=== PATIENT | female | born 1980 | race Caucasian/White ===

== ENCOUNTER 2016-09-17 20:47 | Emergency (ER) | payer OTHER ==
--- NOTE | ~2016-09-17 | CR281 ---
[facility]. [facility] A Service of [facility] & [facility] RADIOLOGY TEXT RESULTS PATIENT: CHAIM LOO LOCATION: SED : [birth year] UNIT #: [id number] AGE: [address]: Bernice Wilson SEX: F ORDER DR: [id number] [address] [address] [id number] E MR#: [id number] Acc #: [id number] NAME: CHAIM LOO : 1980 SEX: F STUDY DATE/TIME: 09/17/2016 20:54 UNIT: SED ROOM: STUDY DESCRIPTION: CR Wrist Min 3 View Lt Attending Physician: Bernice Wilson Pa-C Ordering Physician: Bernice Wilson Pa-C Primary Care Physician: No Primary Care Physician MEDICAL IMAGING REPORT This report is preliminary unless electronic signature is present. EXAM Left wrist series. DATE OF EXAM 09/17/2016 INDICATION Left wrist pain after an injury last night. PROCEDURE 3 views of the left wrist. COMPARISON None. FINDINGS Impacted and dorsally angulated fracture of the distal radius. No dislocation. Dictated by... Richard Fraser M.D. THIS IS AN ELECTRONICALLY VERIFIED REPORT Richard Fraser M.D. at 09/19/2016 7:00 AM ROYAL/malu TD: 09/17/2016 23:42 JOB #: [id number] MEDICAL IMAGING REPORT
[~2016-09-17 20:47] MED LIST: ALBUTEROL HFA INH; ALBUTEROL17 GM INH; ALPRAZOLAM PO; APAP325 MG PO; AUGMENTIN875 M1 PO; BACTRIM DS TABL1 TA2 PO; BACTRIM DS TABL1 TAB; BENZONATATE PO; BP MED; COUGHTAB200 MG PO; DICYCLOMINE HCL20 MG PO; GLUCOPHAGE XR500 MG; HCTZ; HYDROCHLOROTHIA25 MG; KEFLEX; METFORMIN; METFORMIN PO; PAXIL PO; PHENERGAN PO; PREDNISONE PO; PRILOSEC40 MG; PROZAC PO; REMERON30 MG PO; TEMAZEPAM PO; ULTRAM PO; VIBRAMYCIN100 M1 PO; VICODIN 5/1 TAB 5/50 PO; VICODIN 5/500 T1 TAB; VICODIN 5/500 T1 TAB PO; VOLTAREN75 MG PO; XANAX2 MG PO; ZITHROMAX1 G/PKT PO; ZOFRAN ODT4 MG PO
[2016-10-07] MEDS ORDERED: LORTAB 7.5-3251 EACH PO (13:22)
[2016-10-07] MEDS ORDERED: ESSURE (13:52)
== END 2016-09-17 22:48 | disposition home or self-care (01) ==
LOC: SED 20:47
DX: S52.502A Unspecified fracture of the lower end of left radius, initial encounter for closed fracture (principal); I10 Essential (primary) hypertension; E11.9 Type 2 diabetes mellitus without complications; F41.9 Anxiety disorder, unspecified; F32.9 Major depressive disorder, single episode, unspecified; F17.210 Nicotine dependence, cigarettes, uncomplicated; Z90.49 Acquired absence of other specified parts of digestive tract; Z79.899 Other long term (current) drug therapy; W01.0XXA Fall on same level from slipping, tripping and stumbling without subsequent striking against object, initial encounter; Y92.69 Other specified industrial and construction area as the place of occurrence of the external cause; Y99.0 Civilian activity done for income or pay
CPT/HCPCS: 29125; 73110; 99283

== ENCOUNTER → 2016-10-07 | Outpatient (CLI) | payer OTHER ==
[~2016-10-07] MED LIST changes: +ESSURE; +LORTAB 7.5-3251 EACH PO
--- NOTE | ~2016-10-07 | EKG ---
PATIENT: CHAIM LOO UNIT #: [id number] Ventricular Rate: 73 BPM Atrial Rate: 73 BPM P-R Interval: 124 ms QRS Duration: 76 ms Q-T Interval: 392 ms QTC Calculation(Bezet): 431 ms P Allen: 48 degrees Calculated R Allen: 65 degrees Calculated T Allen: 37 degrees Diagnosis Line: Normal sinus rhythm Diagnosis Line: Normal ECG Diagnosis Line: When compared with ECG of 23-AUG-2015 01:19, Diagnosis Line: No significant change was found Diagnosis Line: Confirmed by AJ CABRALES MD ([id number]) on 10/10/2016 Diagnosis Line: 7:22:24 AM INTERPRETING MD: SAMRA SHANNON
[2016-10-07 13:32] LABS: HEMOGLOBIN 14.7 gm/dL (12.0-16.0); MEAN CELL VOLUME 88.7 FL (83-96); MEAN CORPUSCULAR HGB CONC 32.7 g/dL (30-36); MEAN PLATELET VOLUME 8.4 FL (6.5-11.5); RED BLOOD COUNT 5.07 X10e (3.90-5.30); RED CELL DISTRIBUTION WIDTH 13.6 % (11.0-15.5); WHITE BLOOD COUNT 11.6 X10e3 (4.0-10.5)
[2016-10-07 14:08] LABS: BLOOD UREA NITROGEN 10 mg/dL (9-23); CALCIUM SERUM 9.1 mg/dL (8.4-10.2); CARBON DIOXIDE 26 mmol/L (22-31); CHLORIDE 101 mmol/L (100-111); CREATININE SERUM 0.5 mg/dL (0.6-1.4); GLOM FILT RATE Estimated ABOVE60 mL/min (>60); GLUCOSE FASTING 188 mg/dL (70-110); POTASSIUM 4.4 mmol/L (3.5-5.1); SODIUM 131 mmol/L (135-145)
== END | disposition home or self-care (01) ==
LOC: CAMB 12:32
PROVIDERS: Orthopaedic Surgery
DX: Z01.818 Encounter for other preprocedural examination (principal)
CPT/HCPCS: 36415; 80048; 85027; 93005

== ENCOUNTER → 2016-10-11 | Day surgery (SDC) | payer OTHER ==
--- NOTE | ~2016-10-11 | OR ---
Unit #: [id number] #: [id number] Patient: CHAIM UGARTE [id number] [address] [address] [id number] O MR#: [id number] NAME: CHAIM UGARTE ROOM: Date of Procedure: 10/11/2016 Admission Date: 10/11/2016 Surgeon: Michael Velásquez M.D. : 1980 Attending Physician: Michael Velásquez M.D. OPERATIVE REPORT PREOPERATIVE DIAGNOSIS Left 2-part intraarticular distal radius fracture. POSTOPERATIVE DIAGNOSIS Left 2-part intraarticular distal radius fracture. PROCEDURE PERFORMED Open reduction and internal fixation of left intraarticular distal radius fracture, [address]. 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 ANESTHESIA General with LMA. COMPLICATIONS None. SPECIMENS None. DRAINS None. SURGICAL IMPLANTS Biomet short narrow distal radius locking plate. INDICATION FOR PROCEDURE Mr. Ugarte is a 36-year-old female, who had fallen and injured her left wrist approximately a month ago. The patient was uninsured. When she got insurance, she made appointment to see us. She was seen in the office 1 week ago and noted to have a displaced comminuted distal radius fracture with significant shortening and loss of volar tilt. Based on the findings, it is felt she would benefit with ORIF. Risks, benefits, and alternatives of surgery were discussed with the patient. Due to the length of time from the injury, it was discussed to make the procedure more difficult and complex. The patient was well aware of this. Risks include, but not limited to, infection, bleeding, nerve injury, blood clots, risks associated with anesthesia, and possibly . DESCRIPTION OF PROCEDURE Unit #: [id number] #: [id number] Patient: CHAIM UGARTE On 10/11/2016, the patient was seen in preoperative holding area, where her surgical site was marked. Preoperative antibiotics were received. H and P and consent updated. Preoperative block performed. The patient was taken to the operating room and placed on operative table in supine position. General anesthesia was provided without complications. Left upper extremity was prepped and draped in typical sterile fashion. Time-out performed confirming the correct surgical site and procedure. Esmarch used to exsanguinate the arm and an arm tourniquet was inflated to 250 mmHg. At this point, a 1-1/2-inch volar incision was made over the FCR tendon. Incision was taken down through skin and subcutaneous tissues. The FCR tendon was mobilized in an ulnar direction. Underlying fascia carefully split. Pronator quadratus elevated off the distal radius. Fracture site identified. It was significantly displaced dorsally and shortened. The fracture was mobilized using a [place]. Once it had been mobilized, it was provisionally reduced. The plate was chosen and placed on the distal radius. Once it was in appropriate position, the distal locking holes were filled with pegs that were unicortical. The plate was then used to help reduce the fracture by sucking the plate down proximally to the shaft. Bicortical screw was done for this. Two bicortical cross locking screws were placed. The original shaft screw was exchanged for a shorter screw after compression of the plate. It was felt to be about 2 mm too long dorsally. Once this was complete, all instruments were removed. Final AP, oblique, lateral view images were taken of the wrist confirming appropriate reduction of fracture and placement of hardware. As noted, due to the length of time, there was significant shortening. This attempt was made to restore this as best as possible and back to a neutral position. Tourniquet released at 43 minutes. Hemostasis achieved. Wound was thoroughly irrigated. The subcutaneous tissues closed with 3-0 Vicryl followed by a 4-0 Monocryl subcuticular skin stitch. Steri-Strips, 4x4s, and a well-padded volar splint were placed. The patient was subsequently awakened from general anesthesia in stable condition and taken to PACU postoperatively. POSTOPERATIVE PLAN The patient will be discharged home. She can have digit motion. She will follow up in my office in 7 to 10 days. No complications encountered during the surgical procedure. Dictated by... Abdelrahman Mohan/terri TD: 10/12/2016 07:20 JOB #: [id number] OPERATIVE REPORT Page 1 of 1 X X PROCEDURE OPERATIVE NOTE
--- NOTE | ~2016-10-11 | CR281 ---
[facility] A Service of [facility] & [facility] RADIOLOGY TEXT RESULTS PATIENT: CHAIM LOO LOCATION: [facility] : [birth year] UNIT #: [id number] AGE: [address]: Michael Velásquez MD SEX: F ORDER DR: [id number] [facility] [address]. [place], [place] [address] [id number] O MR#: [id number] Acc #: [id number] NAME: CHAIM LOO : 1980 SEX: F STUDY DATE/TIME: 10/11/2016 12:32 UNIT: [facility] ROOM: STUDY DESCRIPTION: CR Wrist Min 3 View Lt Attending Physician: Michael Velásquez M.D. Ordering Physician: Michael Velásquez M.D. Primary Care Physician: Generic Doctor Not In System MEDICAL IMAGING REPORT This report is preliminary unless electronic signature is present EXAM Intraoperative fluoroscopy of the left wrist INDICATIONS 36-year female with left radius fracture, and ORIF. FINDINGS 5 images from the operating room were submitted demonstrating plate and screw fixation of distal radius fracture. Please refer operative report for complete detail. Dictated by... Aaron Flores M.D. THIS IS AN ELECTRONICALLY VERIFIED REPORT Aaron Flores M.D. at 10/13/2016 8:37 AM JAMAL/dali TD: 10/12/2016 14:22 JOB #: [id number] MEDICAL IMAGING REPORT Page 1 of 1 COPY
== END | disposition home or self-care (01) ==
LOC: CSUR 09:39
PROVIDERS: Orthopaedic Surgery
PROC: 0PSJ04Z Reposition Left Radius with Internal Fixation Device, Open Approach (ICD-10-PCS; principal; 2016-10-11 11:30)
DX: S52.572A Other intraarticular fracture of lower end of left radius, initial encounter for closed fracture (principal); F17.200 Nicotine dependence, unspecified, uncomplicated; Z79.891 Long term (current) use of opiate analgesic; Z86.79 Personal history of other diseases of the circulatory system; Z86.39 Personal history of other endocrine, nutritional and metabolic disease; Z96.89 Presence of other specified functional implants; Z86.14 Personal history of Methicillin resistant Staphylococcus aureus infection; Z90.49 Acquired absence of other specified parts of digestive tract; Z98.890 Other specified postprocedural states
CPT/HCPCS: 73110; 76001; 82947; 84295; 84703; C1713; J0690; J2250; J2405; J2795; J3010; J3370

== ENCOUNTER 2016-11-29 14:35 | Emergency (ER) | payer OTHER ==
--- NOTE | ~2016-11-29 | US140 ---
[facility] A Service of [facility] RADIOLOGY TEXT RESULTS PATIENT: CHAIM LOO LOCATION: SED : [birth year] UNIT #: [id number] AGE: [address]: Sherri Mitchell APRN SEX: F ORDER DR: [id number] [place] [id number] E MR#: [id number] Acc #: [id number] NAME: CHAIM LOO : 1980 SEX: F STUDY DATE/TIME: 11/29/2016 16:26 UNIT: SED ROOM: STUDY DESCRIPTION: [facility] Attending Physician: Sherri Mitchell A.P.R.N. Ordering Physician: Sherri Mitchell A.P.R.N. Primary Care Physician: Wang Flores M.D. MEDICAL IMAGING REPORT This report is preliminary unless electronic signature is present. EXAM Right upper extremity venous ultrasound. HISTORY Right upper extremity and pain, and swelling for 3 days. Injected meth 3 days ago in right antecubital fossa. TECHNIQUE Venous ultrasound examination of the right upper extremity was performed using grayscale, spectral Doppler and color flow Doppler imaging. FINDINGS The examination is negative. There is no evidence of deep venous thrombus within the right internal jugular vein, subclavian vein, axillary vein or brachial veins. No superficial venous thrombus is seen within the cephalic or basilic veins. IMPRESSION Negative examination. No evidence of right upper extremity venous thrombosis. Dictated by... Song Michael M.D. THIS IS AN ELECTRONICALLY VERIFIED REPORT Song Michael M.D. at 11/29/2016 11:15 PM ROSA/malu TD: 11/29/2016 21:03 [facility] A Service [facility] RADIOLOGY TEXT RESULTS PATIENT: CHAIM LOO LOCATION: SED : [birth year] UNIT #: [id number] AGE: [address]: Sherri Mitchell APRN SEX: F ORDER DR: JOB #: [id number] MEDICAL IMAGING REPORT Page 1 of 1
--- NOTE | ~2016-11-29 | CR94 ---
[facility]. [facility] A Service of [facility] & [facility] RADIOLOGY TEXT RESULTS PATIENT: CHAIM LOO LOCATION: SED : 80 UNIT #: [id number] AGE: [address]: Sherri Mitchell APRN SEX: F ORDER DR: [id number] [place] [id number] E MR#: [id number] Acc #: [id number] NAME: CHAIM LOO : 1980 SEX: F STUDY DATE/TIME: 11/29/2016 15:09 UNIT: SED ROOM: STUDY DESCRIPTION: CR Elbow Min 3 Views Rt Attending Physician: Sherri Mitchell A.P.R.N. Ordering Physician: Sherri Mitchell A.P.R.N. Primary Care Physician: Wang Flores M.D. MEDICAL IMAGING REPORT This report is preliminary unless electronic signature is present. EXAM Right elbow. HISTORY Pain and swelling since yesterday. Patient was injecting meth in elbow. FINDINGS Three views of the elbow were obtained. There is no fracture or foreign body identified. There is no effusion. IMPRESSION Normal right elbow. Dictated by... Chucky Nettles M.D. THIS IS AN ELECTRONICALLY VERIFIED REPORT Chucky Nettles M.D. at 11/30/2016 7:15 AM EDILIA/tanner TD: 11/29/2016 17:12 JOB #: [id number] MEDICAL IMAGING REPORT Page 1 of 1
[2016-11-29 15:28] LABS: BASOPHIL% 0.2 % (0-2.5); EOSINOPHIL# 0.1 X10e3 (0-0.7); EOSINOPHIL% 0.5 % (0.0-7.0); HEMATOCRIT 43.5 % (35.0-45.0); HEMOGLOBIN 14.5 gm/dL (12.0-16.0); LYMPHOCYTE# 1.9 X10e3 (1.0-3.5); LYMPHOCYTE% 9.5 % (17.0-45.0); MEAN CELL VOLUME 87.8 FL (83-96); MEAN CORPUSCULAR HEMOGLOBIN 29.4 PG (28-34); MEAN CORPUSCULAR HGB CONC 33.4 g/dL (30-36); MONOCYTE# 1.6 X10e3 (0-1.0); MONOCYTE% 8.3 % (3.0-12.0); NEUTROPHIL# 16.1 X10e3 (1.5-7.1); NEUTROPHIL% 81.5 % (40-75); PLATELET COUNT 315 X10e3 (140-420); RED BLOOD COUNT 4.95 X10e (3.90-5.30); RED CELL DISTRIBUTION WIDTH 13.2 % (11.0-15.5); WHITE BLOOD COUNT 19.8 X10e3 (4.0-10.5)
[2016-11-29 15:31] LABS: DIFF IND NO
[2016-11-29 15:50] LABS: ALBUMIN SERUM 3.9 g/dL (3.5-5.0); BILIRUBIN, DIRECT 0.2 mg/dL (0.0-0.2); BILIRUBIN,TOTAL 1.2 mg/dL (0.2-2.0); CALCIUM SERUM 8.9 mg/dL (8.4-10.2); CREATININE SERUM 0.6 mg/dL (0.6-1.4); GLOM FILT RATE Estimated 117.3 mL/min (>60); POTASSIUM 3.8 mmol/L (3.5-5.1); PROTEIN TOTAL SERUM 7.4 g/dL (6.0-8.3)
== END 2016-11-29 17:51 | disposition home or self-care (01) ==
LOC: SED 14:35
PROVIDERS: Nurse Practitioner
DX: L03.113 Cellulitis of right upper limb (principal); E11.9 Type 2 diabetes mellitus without complications
CPT/HCPCS: 73080; 80048; 80076; 82947; 85025; 93971; 96365; 99284